=== PATIENT | male | born 1970 | race Caucasian/White ===

== ENCOUNTER 2016-03-09 02:34 | Emergency (ER) | payer OTHER ==
[~2016-03-09] VITALS: Ht 182.9 cm; Wt 79.4 kg
[~2016-03-09 02:34] MED LIST: IBUPROFEN 600600 M1 PO; NOHOMEMEDICATIONS
[2016-03-09 02:56] LABS: HEMATOCRIT 45.3 % (42.0-52.0); HEMOGLOBIN 15.5 gm/dL (14.0-18.0); MCH 31.8 pg (26.0-34.0); MCHC 34.2 % (28.0-37.0); MCV 93.1 fL (80.0-100.0); PLATELET COUNT 231 thou/uL (150-400); RBC 4.87 mil/uL (4.50-6.00); RDW 12.6 % (10.5-14.5); WBC 17.3 thou/uL (4.0-11.0)
[2016-03-09 03:03] LABS: MANUAL DIFF YES
[2016-03-09 03:11] LABS: CALCIUM 9.5 mg/dL (8.5-10.1); CREATININE 1.8 mg/dL (0.6-1.3); POTASSIUM 3.9 mmol/L (3.5-5.1)
[2016-03-09 03:16] LABS: URINE BILIRUBIN NEGATIVE (Negative); URINE BLOOD 3+ (Negative); URINE COLOR YELLOW; URINE GLUCOSE-RANDOM* NEGATIVE (Negative); URINE KETONES TRACE (Negative); URINE LEUKOCYTES-REFLEX NEGATIVE (Negative); URINE PROTEIN (DIPSTICK) TRACE (Negative); URINE SPECIFIC GRAVITY 1.025 (1.003-1.035); URINE UROBILINOGEN 0.2 E.U./dl (0.2-1.0)
[2016-03-09 03:17] LABS: TOTAL BILIRUBIN 0.4 mg/dL (<0.1-1.0); TOTAL PROTEIN 7.4 g/dL (6.4-8.2)
[2016-03-09 03:26] LABS: ABSOLUTE NEUTROPHILS 15.1 thou/uL (1.4-8.2); TOTAL CELL COUNT 100
[2016-03-09 03:37] LABS: CASTS None Seen /LPF (None Seen); SQUAMOUS None Seen /LPF (0-3)
[2016-03-09 03:38] LABS: CRYSTALS None Seen /LPF (None Seen); URINE RBC >20 Many /HPF (0-2); URINE WBC-REFLEX 0-5 Rare /HPF (0-5)
[2016-03-09] MEDS ORDERED: ZOFRAN ODT4 MG PO (05:58)
[2016-03-09] MEDS ORDERED: HYDROCODONE-AP1 EAC6 PO (05:58)
[2016-03-09 06:20] VITALS: BP 116/98
== END 2016-03-09 06:21 | disposition home or self-care (01) ==
LOC: ER 02:34
PROVIDERS: Emergency Medicine
DX: N20.2 Calculus of kidney with calculus of ureter (principal); F10.99 Alcohol use, unspecified with unspecified alcohol-induced disorder

== ENCOUNTER 2020-10-04 14:36 | Emergency (ER) | payer OTHER ==
[~2020-10-04] VITALS: Ht 182.9 cm; Wt 79.4 kg
[~2020-10-04 14:36] MED LIST changes: +HYDROCODONE-AP1 EAC6 PO; +ZOFRAN ODT4 MG PO
[2020-10-04 14:41] VITALS: BP 154/90
== END 2020-10-04 15:36 | disposition home or self-care (01) ==
LOC: ER 14:36
DX: S61.217A Laceration without foreign body of left little finger without damage to nail, initial encounter (principal); W26.8XXA Contact with other sharp object(s), not elsewhere classified, initial encounter; Y93.89 Activity, other specified; Y92.89 Other specified places as the place of occurrence of the external cause; Y99.8 Other external cause status